=== PATIENT | female | born 1990 | race Caucasian/White ===

== ENCOUNTER → 2017-09-27 10:03 | Outpatient (CLI) | payer OTHER, SELFPAY ==
[2017-09-27 12:02] LABS: Absolute Lymphocyte Count 1.35 X10^3/ul (0.83-4.51); Absolute Neutrophil Count 3.3 X10^3/uL (2.0-7.7); Basophil# 0.02 X10^3/uL; Basophil% 0.4 % (0-1); Eosinophil# 0.09 X10^3/uL; Eosinophils% 1.7 % (0-5); Hematocrit 38.4 % (37-47); Hemoglobin 12.7 g/dl (12.0-15.0); Lymphocyte # 1.35 X10^3/ul (4.0); Lymphocyte % 25.9 % (19-41); Mean Corp Hgb Conc 33.1 g/gl (32-36); Mean Corpuscular Hgb 30.8 pg (27.0-32.0); Mean Corpuscular Volume 93.2 fL (81-99); Mean Platelet Vol. 9.6 fl (6.2-12.0); Monocyte# 0.47 X10^3/uL; Neutrophil # 3.28 X10^3/uL (2.7-7.7); Neutrophil % 62.8 % (47-70); Platelet Count 244 K/mm3 (150-450); RBC Distribution Width CV 12.2 % (11.6-14.6); Red Blood Count 4.12 M/mm3 (4.2-5.4); White Blood Count 5.2 K/mm3 (4.4-11.0)
[2017-09-27 12:04] LABS: POSITIVE COUNT NO; POSITIVE DIFFERENTIAL NO; POSITIVE MORPHOLOGY NO
[2017-09-27 12:18] LABS: ALB/GLOB Ratio 0.9 RATIO (0.9-2.4); AST(SGOT) 17 U/L (15-37); Alanine Aminotransfer ALT/SGPT 24 U/L (13-56); Albumin, Serum 3.6 g/dL (3.2-5.0); Alkaline Phosphatase 92 U/L (45-117); Anion Gap 6 (5-15); BUN 14 mg/dL (7-18); BUN/Creat Ratio 18.4 RATIO (10-20); Calcium,Total 8.9 mg/dL (8.5-10.1); Chloride 105 mmol/L (98-107); Creatinine, Serum 0.76 mg/dL (0.55-1.02); EST Glomerular Filtration Rate 96 mL/min (>60); Est Glom Filt Rate - Afr Amer 116 mL/min (>60); Ferritin 4 ng/mL (8-252); Globulin 3.8 g/dL (2.2-4.2); Glucose 91 mg/dL (74-106); Potassium 3.9 mmol/L (3.5-5.1); Protein, Total 7.4 g/dL (6.4-8.2); Sodium Level 140 mmol/L (136-145)
[2017-09-28 11:27] LABS: ANTINUCLEAR ANTIBODIES DIRECT Negative (Negative)
[2017-10-02 09:36] LABS: Testosterone, % Free 2.13 % (0.50-2.80); Testosterone, Free 0.45 ng/dL (0.10-0.85); Testosterone, Total 21 ng/dL (8-48)
[2017-10-03 11:07] LABS: DHEA Sulfate 179.1 ug/dL (84.8-378.0)
== END ==
PROVIDERS: Visit Provider Dermatology Pediatric Dermatology
DX: L65.0 Telogen effluvium (principal)
CPT/HCPCS: 36415; 80053; 82627; 82728; 84402; 84403; 85025; 86038; 82626

== ENCOUNTER → 2017-11-30 16:36 | Outpatient (CLI) | payer OTHER, SELFPAY ==
[2017-11-30 17:48] LABS: Ferritin 26 ng/mL (8-252)
== END ==
DX: L65.0 Telogen effluvium (principal)
CPT/HCPCS: 36415; 82728

== ENCOUNTER → 2018-03-06 10:42 | Outpatient (CLI) | payer OTHER, SELFPAY ==
[2018-03-06 12:48] LABS: Ferritin 37 ng/mL (8-252)
== END ==
PROVIDERS: Referring Provider Physician Assistant; Visit Provider Physician Assistant
DX: L65.0 Telogen effluvium (principal)
CPT/HCPCS: 36415; 82728